=== PATIENT | male | born 1950 | race Caucasian/White ===

== ENCOUNTER 2019-11-08 11:48 | Outpatient (CLI) | payer OTHER | END 2019-11-08 15:00 | disposition home or self-care (01) | LOC: LAB 11:48 | DX: R97.20 Elevated prostate specific antigen [PSA] (principal) ==

== ENCOUNTER 2020-04-01 11:16 | Emergency (ER) | payer OTHER ==
[~2020-04-01] VITALS: Ht 180.3 cm; Wt 83.9 kg
[2020-04-01] MEDS ORDERED: NOVOLOG100 UNIT/1 (11:26)
[2020-04-01] MEDS ORDERED: BUPROPION HCL200 M1 (11:27)
[2020-04-01] MEDS ORDERED: PRAVASTATIN SOD20 MG (11:27)
[2020-04-01] MEDS ORDERED: [UNRECOGNIZED DRUG - OTHER] (11:27)
== END 2020-04-01 13:47 | disposition home or self-care (01) ==
LOC: ER 11:16
DX: M54.2 Cervicalgia (principal)

== ENCOUNTER → 2020-07-07 09:27 | Outpatient (CLI) | payer OTHER ==
[~2020-07-07 09:27] MED LIST: BUPROPION HCL200 M1; NOVOLOG100 UNIT/1; PRAVASTATIN SOD20 MG; [UNRECOGNIZED DRUG - OTHER]
== END | disposition home or self-care (01) ==
LOC: LAB 09:27
PROVIDERS: ATTEND Urology
DX: R97.20 Elevated prostate specific antigen [PSA] (principal)

== ENCOUNTER 2020-07-15 11:09 | Outpatient (CLI) | payer OTHER | END 2020-07-15 11:11 | disposition home or self-care (01) | LOC: SONOGRAMA 11:09 | PROVIDERS: ATTEND Urology | DX: R97.20 Elevated prostate specific antigen [PSA] (principal); N39.41 Urge incontinence; R31.29 Other microscopic hematuria ==

== ENCOUNTER → 2020-12-01 | Outpatient (CLI) | payer OTHER | END | disposition home or self-care (01) | LOC: RAD 14:44 | DX: M54.5 Low back pain (principal) ==

== ENCOUNTER 2021-02-06 08:08 | Emergency (ER) | payer OTHER ==
[~2021-02-06] VITALS: Ht 177.8 cm; Wt 81.6 kg
== END 2021-02-06 11:50 | disposition home or self-care (01) ==
LOC: ER 08:08
DX: R06.6 Hiccough (principal)

== ENCOUNTER 2021-08-25 12:50 | Outpatient (CLI) | payer OTHER | END 2021-08-25 12:58 | disposition home or self-care (01) | LOC: SONOGRAMA 12:50 → MAMO-SONO 13:15 | PROVIDERS: ATTEND Internal Medicine | DX: N17.8 Other acute kidney failure (principal); R31.29 Other microscopic hematuria ==

== ENCOUNTER 2025-05-13 09:11 | Outpatient (CLI) | payer OTHER | END 2025-05-13 09:14 | disposition home or self-care (01) | LOC: SONOGRAMA 09:11 | PROVIDERS: ATTEND Internal Medicine | DX: R74.01 Elevation of levels of liver transaminase levels (principal) ==